=== PATIENT | female | born 1975 | race Caucasian/White ===

== ENCOUNTER 2019-02-11 17:11 | Emergency (ER) | payer OTHER ==
--- NOTE | 2019-02-11 18:23 | UC ---
Dental HPI - HPI Summary HPI Summary: Left dental pain . Lower has a broken tooth. Also having pain of left upper tooth. Pain began three days ago.Left cheek swelling and mild redness. Pt was recently treated amoxicillin one course and then Omnicef for a sinus infection - History of Current Complaint Chief Complaint: UCDentalProblem Stated Complaint: DENTAL COMPLAINT Time Seen by Provider: 02/11/19 18:21 Hx Obtained From: Patient Hx Last Menstrual Period: 02/02/19 Onset/Duration: Sudden Onset, Lasting Days Severity: Moderate Pain Intensity: 5 Related History: Previous Dental Care on Same Tooth, Swelling - Allergies/Home Medications Allergies/Adverse Reactions: Allergies Allergy/AdvReac Type Severity Reaction Status Date / Time erythromycin base Allergy Unknown Difficulty Verified 02/11/19 17:47 Breathing Home Medications: Home Medications Acetaminophen [Pain Relief Extra Strength] 1,000 mg PO PRN 02/11/19 [History] Cholecalciferol TAB* [Vitamin D TAB*] 1,000 unit PO DAILY 02/11/19 [History Confirmed 02/11/19] Fexofenadine (NF) [Shantal 180 (NF)] 180 mg PO DAILY 02/11/19 [History Confirmed 02/11/19] Fluticasone NASAL SPRAY 50MCG* [Flonase NASAL SPRAY 50MCG*] 2 spray BOTH NARES DAILY 02/11/19 [History Confirmed 02/11/19] Levothyroxine TAB* [Synthroid TAB*] 25 mcg PO DAILY 02/11/19 [History Confirmed 02/11/19] Meloxicam [Mobic] 7.5 mg PO BID 02/11/19 [History Confirmed 02/11/19] Omeprazole 20 mg PO DAILY 02/11/19 [History Confirmed 02/11/19] PMH/Surg Hx/FS Hx/Imm Hx Previously Healthy: Yes - Surgical History Surgical History: Yes Surgery Procedure, Year, and Place: LEFT EAR SURGERY AGE 13 - Family History Known Family History: Positive: Hypertension - Social History Alcohol Use: Rare Substance Use Type: None Smoking Status (MU): Former Smoker Type: Cigarettes Amount Used/How Often: 1/2 ppd Household Exposure Type: Cigarettes Review of Systems All Other Systems Reviewed And Are Negative: Yes ENT: Positive: Dental Pain, Sinus Congestion Physical Exam Triage Information Reviewed: Yes Appearance: Well-Appearing, Well-Nourished, Pain Distress Vital Signs: Initial Vital Signs Temp 98.1 F 02/11/19 17:52 Pulse 83 02/11/19 17:52 Resp 18 02/11/19 17:52 BP 135/70 02/11/19 17:52 Pulse Ox 97 02/11/19 17:52 Vital Signs Reviewed: Yes Eye Exam: Normal ENT Exam: Normal Dental: Positive: Dental Fracture @ Neck exam: Normal Respiratory Exam: Normal Respiratory: Positive: Chest non-tender, Lungs clear, Normal breath sounds Cardiovascular Exam: Normal Cardiovascular: Positive: RRR, No Murmur, Pulses Normal Abdominal Exam: Normal Abdomen Description: Positive: Nontender, No Organomegaly, Soft Musculoskeletal Exam: Normal Neurological Exam: Normal Psychological Exam: Normal Skin Exam: Normal Dental Complaint Course/Dx - Course Course Of Treatment: hx obtained, exam performed ,meds reviewed, treated for dental infection - Differential Dx/Diagnosis Differential Diagnosis/Dx: Dental Abscess, Fractured Tooth Provider Diagnosis: Dental abscess Discharge ED - Sign-Out/Discharge Documenting (check all that apply): Patient Departure All imaging exams completed and their final reports reviewed: No Studies - Discharge Plan Condition: Stable Disposition: HOME Prescriptions: Clindamycin Cap(NF) [Clindamycin Cap 300 mg Cap(NF)] 300 mg PO TID #20 cap Patient Education Materials: Dental Abscess (ED) Referrals: Rosina White PA [Primary Care Provider] - Additional Instructions: 1. take the medication as prescribed. 2. Coconut oil swishes 2-3 times a day 3. FOllow up with the dentist 4. Ibuprofen 400 mg with 50-650 of tylenol every 6 hours - Billing Disposition and Condition Condition: STABLE Disposition: Home
[2019-02-11] MEDS ORDERED: Clindamycin CAP* 150 MG PO ONE (18:31)
== END 2019-02-11 18:40 | disposition home or self-care (01) ==
LOC: UCCORT 17:11
DX: K04.7 Periapical abscess without sinus (principal); Z88.1 Allergy status to other antibiotic agents; Z87.891 Personal history of nicotine dependence
CPT/HCPCS: 99202; A9270-GY; G0463

== ENCOUNTER 2019-03-09 15:59 | Emergency (ER) | payer OTHER ==
[2019-03-09 16:57] VITALS: BP 131/91
--- NOTE | 2019-03-09 17:20 | UC ---
Throat Pain/Nasal Jose Eduardo HPI - HPI Summary HPI Summary: Pt presents with c/o nasal congestion, sinus pressure and pain . Pt has hx of frequent sinus infections and has been on amoxcillin and omnicef in November and clindamycin the first week of February for dental abscess. Pt was seen by PCP in November who RX'd the antibiotics and has referred her to ENT specialist in [place]. Pt is scheduled to see ENT specialist the second week of March. Pt states she has facial pressure and pain with left maxillary sinus more tender than right . Pt is concerned that she may have another sinus infection. - History of Current Complaint Stated Complaint: SINUS INFECTION Time Seen by Provider: 03/09/19 16:55 Hx Obtained From: Patient Hx Last Menstrual Period: 02/28/19 ?: No Onset/Duration: Gradual Onset, Lasting Days, Still Present Severity: Mild Pain Intensity: 3 Cough: None Associated Signs & Symptoms: Positive: Sinus Discomfort Related History: Seasonal Allergies - Epiglottits Risk Factors Epiglottis Risk Factors: Negative - Allergies/Home Medications Allergies/Adverse Reactions: Allergies Allergy/AdvReac Type Severity Reaction Status Date / Time erythromycin base Allergy Unknown Difficulty Verified 02/11/19 17:47 Breathing Home Medications: Home Medications Mometasone NASAL (NF) [Nasonex (NF)] 1 spray BOTH NARES BID 03/09/19 [History Confirmed 03/09/19] PMH/Surg Hx/FS Hx/Imm Hx Previously Healthy: Yes - Surgical History Surgical History: Yes Surgery Procedure, Year, and Place: LEFT EAR SURGERY AGE 13 - Family History Known Family History: Positive: Hypertension - Social History Occupation: Works From/At Home Lives: With Family Alcohol Use: Rare Substance Use Type: None Smoking Status (MU): Current Some Day Smoker Type: Cigarettes Amount Used/How Often: less than 1/2 ppd. Have You Smoked in the Last Year: Yes Household Exposure Type: Cigarettes Review of Systems All Other Systems Reviewed And Are Negative: Yes Constitutional: Positive: Fatigue Skin: Positive: Negative Eyes: Positive: Negative ENT: Positive: Sinus Congestion, Sinus Pain/Tenderness Respiratory: Positive: Negative Cardiovascular: Positive: Negative Gastrointestinal: Positive: Negative Genitourinary: Positive: Negative Motor: Positive: Negative Neurovascular: Positive: Negative Musculoskeletal: Positive: Negative Neurological: Positive: Headache Psychological: Positive: Negative Is Patient Immunocompromised?: No Physical Exam Triage Information Reviewed: Yes Appearance: Well-Appearing Vital Signs: Initial Vital Signs Temp 98.1 F 03/09/19 16:51 Pulse 88 03/09/19 16:51 Resp 16 03/09/19 16:51 BP 131/91 03/09/19 16:51 Pulse Ox 99 03/09/19 16:51 Vital Signs Reviewed: Yes Eye Exam: Normal ENT: Positive: Nasal congestion, Sinus tenderness Dental Exam: Normal Neck exam: Normal Respiratory Exam: Normal Cardiovascular Exam: Normal Musculoskeletal Exam: Normal Neurological Exam: Normal Psychological Exam: Normal Skin Exam: Normal Throat Pain/Nasal Course/Dx - Course Course Of Treatment: I discussed the need to f/u with ENT specialist. I also discussed use of mucinex and prednisone and not another antibiotic to help manage her symptoms. Pt verbalized understanding and agreed to plan of care. - Differential Dx/Diagnosis Differential Diagnosis/HQI/PQRI: Sinusitis, URI Provider Diagnosis: Rhinosinusitis Discharge ED - Sign-Out/Discharge Documenting (check all that apply): Patient Departure All imaging exams completed and their final reports reviewed: No Studies - Discharge Plan Condition: Stable Disposition: HOME Prescriptions: Guaifenesin/Pseudoephedrne HCl [Mucinex D ER 600-60 mg Tablet] 1 each PO Q12H # 14 tab.er.12h predniSONE TAB* [Deltasone 20 MG TAB*] 60 mg PO DAILY #12 tab Patient Education Materials: Sinusitis (ED) Referrals: Christopher Carr MD [Medical Doctor] - If Needed Rosina White PA [Primary Care Provider] - Additional Instructions: Please follow up with your ENT specialist as soon as possible. - Billing Disposition and Condition Condition: STABLE Disposition: Home
== END 2019-03-09 17:34 | disposition home or self-care (01) ==
LOC: UCCORT 15:59
DX: J32.9 Chronic sinusitis, unspecified (principal); F17.210 Nicotine dependence, cigarettes, uncomplicated; Z88.1 Allergy status to other antibiotic agents
CPT/HCPCS: 99212; G0463